=== PATIENT | female | born 1960 | race Caucasian/White ===

== ENCOUNTER 2018-03-24 12:45 | Emergency (ER) | payer MEDICAID ==
[~2018-03-24] VITALS: Ht 167.6 cm; Wt 94.3 kg
[~2018-03-24 12:45] MED LIST: ASPI81CH43 PO; LORA10CA7 PO; LOSA-46 PO; METF-372 PO; METO-169 PO; OMEP20TA85 PO; SIMV40TA96 PO
[2018-03-24 12:54] VITALS: BP 182/90
[2018-03-24 13:53] LABS: Basophils # (auto) 0 uL; Basophils % (auto) 0.4 % (0.0-2.0); Eosinophils # (auto) 0.2 uL; Hematocrit 42.6 % (36.0-46.0); Hemoglobin 14.3 g/dL (12.2-16.2); Lymphocytes # (auto) 1.9 uL; Lymphocytes % (auto) 31.2 % (10.0-50.0); Mean Corpuscular Hemoglobin 28.5 pg (28.0-32.0); Mean Corpuscular Hgb Conc. 33.5 g/dL (32.0-36.0); Mean Corpuscular Volume 85.2 fL (80.0-100.0); Monocytes # (auto) 0.5 uL; Monocytes % (auto) 7.7 % (0.0-12.0); Neutrophils # (auto) 3.5 uL; Neutrophils % (auto) 57.7 % (37.0-80.0); Nucleated Red Blood Cells % 0.1 %; Platelet Count (auto) 215 10^3/uL (140-450); Red Cell Distribution Width 14.5 % (11.8-14.3)
[2018-03-24 14:39] LABS: Blood Urea Nitrogen 14 mg/dL (7-18); Calcium 8.9 mg/dL (8.5-10.1); Chloride 108 mmol/L (98-107); Glucose 97 mg/dL (74-106); Potassium 3.8 mmol/L (3.5-5.1); Sodium 139 mmol/L (136-145)
[2018-03-24 14:52] LABS: Alanine Aminotransferase 37 U/L (13-56); Albumin 3.9 g/dL (3.4-5.0); Alkaline Phosphatase 187 U/L (45-117); Anion Gap 3 (5-15); Aspartate Aminotransferase 35 U/L (15-37); BUN/Creatinine Ratio 24.1; Bilirubin, Total 0.9 mg/dL (0.2-1.0); Carbon Dioxide 28 mmol/L (21-32); GFR African American 137 mL/min; GFR Non-African American 113 mL/min; Magnesium 2.2 mg/dL (1.6-2.6); Total Protein 7.5 g/dL (6.4-8.2)
== END 2018-03-24 19:00 | disposition left against medical advice (07) ==
LOC: ER 12:45
DX: R07.9 Chest pain, unspecified (principal); Z53.21 Procedure and treatment not carried out due to patient leaving prior to being seen by health care provider
CPT/HCPCS: 36415; 80053; 83735; 84484; 85025; 93005

== ENCOUNTER → 2019-08-04 | Outpatient (CLI) | payer MEDICAID ==
[~2019-08-04] VITALS: Ht 167.6 cm; Wt 98.4 kg
[~2019-08-04] MED LIST changes: +ADENOSINE 83 MG in GIVE UN-DILUTED 0 ML IV ONE; +ADENOSINE 90 MG/30 ML INJ IV ONE; -LOSA-46 PO; +LOSA-69 PO
== END | disposition home or self-care (01) ==
LOC: Rad HDHVI 08:17
PROVIDERS: ATTEND Internal Medicine Cardiovascular Disease
DX: R07.9 Chest pain, unspecified (principal); R42 Dizziness and giddiness; I20.0 Unstable angina
CPT/HCPCS: 78452; 93005; 93306; 96374; 96375; A9500; J0153

== ENCOUNTER → 2020-09-13 | Outpatient (CLI) | payer MEDICAID ==
[~2020-09-13] MED LIST changes: -ADENOSINE 83 MG in GIVE UN-DILUTED 0 ML IV ONE; -ADENOSINE 90 MG/30 ML INJ IV ONE; +FLUO1TAB14 PO; +FLUT50SP28; -METO-169 PO; +METO-289 PO; +METO-6 PO; +OMEP-434 PO; +PANC3600 PO; +SEMA2INJ SC; +SIMV40TA2 PO; -SIMV40TA96 PO; +SITA100T7 PO
[2020-09-13 09:36] VITALS: BP 126/80
[2020-09-13 10:04] VITALS: BP 127/74
[2020-09-13 12:55] LABS: Basophils # (auto) 0 10 ^3/uL (0-0.2); Basophils % (auto) 0.9 % (0.0-2.0); Eosinophils # (auto) 0.2 10 ^3/uL (0-0.8); Eosinophils % (auto) 3.6 % (0.0-7.0); Hematocrit 39.4 % (36.0-46.0); Lymphocytes # (auto) 1.1 10 ^3/uL (0.4-5.4); Lymphocytes % (auto) 21.1 % (10.0-50.0); Mean Corpuscular Hemoglobin 32.3 pg (28.0-32.0); Mean Corpuscular Hgb Conc. 35.6 g/dL (32.0-36.0); Mean Corpuscular Volume 90.5 fL (80.0-100.0); Monocytes # (auto) 0.3 10 ^3/uL (0-1.3); Monocytes % (auto) 5.8 % (0.0-12.0); Neutrophils # (auto) 3.7 10 ^3/uL (1.6-8.6); Neutrophils % (auto) 68.6 % (37.0-80.0); Nucleated Red Blood Cells % 0.1 %; Platelet Count (auto) 224 10^3/uL (140-450); Red Blood Cells 4.35 10^6/uL (4.0-5.20); Red Cell Distribution Width 13.5 % (11.8-14.3); White Blood Cell 5.4 10^3/uL (4.4-10.8)
[2020-09-13 13:05] LABS: INR 0.97 (0.9-1.15); Partial Thromboplastin Time 27.8 sec (23.0-31.2)
[2020-09-13 13:16] LABS: BUN/Creatinine Ratio 19.7; Potassium 3.6 mmol/L (3.5-5.1)
== END | disposition home or self-care (01) ==
LOC: Rad HDHVI 08:57
PROVIDERS: ATTEND Internal Medicine Cardiovascular Disease
DX: Z01.818 Encounter for other preprocedural examination (principal); I48.91 Unspecified atrial fibrillation; R00.2 Palpitations; I70.0 Atherosclerosis of aorta; R94.31 Abnormal electrocardiogram [ECG] [EKG]
CPT/HCPCS: 36415; 71046; 80048; 85025; 85610; 85730; 93005; G0463

== ENCOUNTER 2020-09-16 07:02 | Day surgery (SDC) | payer MEDICAID ==
[~2020-09-16] VITALS: Ht 167.6 cm; Wt 87.1 kg
[~2020-09-16 07:02] MED LIST changes: -ASPI81CH43 PO; -LORA10CA7 PO; -LOSA-69 PO; -METF-372 PO; -METO-289 PO; -SIMV40TA2 PO
[2020-09-16] MEDS ORDERED: LIDOCAINE 2%HCL (LOCAL ANESTH.) INJ 20ML MDV ONE (07:35)
[2020-09-16] MEDS ORDERED: IOHEXOL 350 MG/ML 100ML IJ ONE (07:36)
[2020-09-16] MEDS ORDERED: HEPARIN IN NS 1000Units/500mL 1,500 ML ONE (07:36)
[2020-09-16] MEDS ORDERED: ANGIOMAX 250 MG VIAL IV ONE (07:51)
[2020-09-16] MEDS ORDERED: fentaNYL CITRATE 100 MCG/2 ML VL ONE (07:51)
[2020-09-16] MEDS ORDERED: SODIUM CHL 0.9% 0 ML ONE (07:51)
[2020-09-16] MEDS ORDERED: MIDAZOLAM HCL 1MG/1ML-2 ML VIAL ONE (07:51)
== END 2020-09-16 11:40 | disposition home or self-care (01) ==
LOC: CATH 07:02
PROVIDERS: ATTEND Internal Medicine Cardiovascular Disease
DX: I25.10 Atherosclerotic heart disease of native coronary artery without angina pectoris (principal); I10 Essential (primary) hypertension; I25.2 Old myocardial infarction; J45.909 Unspecified asthma, uncomplicated; E11.9 Type 2 diabetes mellitus without complications; J44.9 Chronic obstructive pulmonary disease, unspecified; Z68.31 Body mass index [BMI] 31.0-31.9, adult; Z20.822 Contact with and (suspected) exposure to COVID-19; Z98.890 Other specified postprocedural states; Z79.899 Other long term (current) drug therapy; Z88.0 Allergy status to penicillin; Z88.6 Allergy status to analgesic agent
CPT/HCPCS: 93458; C1760; C1894; J1644; J2250; J3010; J7040; Q9967; U0003; 99152

== ENCOUNTER 2021-10-13 19:30 | Emergency (ER) | payer MEDICAID ==
[2021-10-13 22:33] VITALS: BP 157/82
[2021-10-13] MEDS ORDERED: KETOROLAC TROMETH 60MG/2ML VIAL IM ONE (23:45)
== END 2021-10-13 23:57 | disposition home or self-care (01) ==
LOC: ER 19:30
DX: M54.16 Radiculopathy, lumbar region (principal); E11.9 Type 2 diabetes mellitus without complications; K21.9 Gastro-esophageal reflux disease without esophagitis; E78.5 Hyperlipidemia, unspecified; I10 Essential (primary) hypertension; Z90.49 Acquired absence of other specified parts of digestive tract; Z98.51 Tubal ligation status; Z87.442 Personal history of urinary calculi; Z88.0 Allergy status to penicillin
CPT/HCPCS: 72131; 96372; 99284; J1885

== ENCOUNTER 2022-02-01 13:29 | Inpatient (IN) | payer MEDICAID ==
[~2022-02-01] VITALS: Ht 167.6 cm; Wt 81.0 kg
[2022-02-01] MEDS ORDERED: SODIUM CHLORIDE 0.9% 1,000 ML IV ONE ×2 (15:45)
[2022-02-01] MEDS ORDERED: HYDROmorphone HCL 2 MG/ML VL/or syr IV ONE (15:45)
[2022-02-01] MEDS ORDERED: PROMETHAZINE HCL 25 MG/ML 1ML IV PRN (15:45)
[2022-02-01 16:21] LABS: Basophils # (auto) 0.2 10 ^3/uL (0-0.2); Basophils % (auto) 1.1 % (0.0-2.0); Eosinophils # (auto) 0.1 10 ^3/uL (0-0.8); Eosinophils % (auto) 0.8 % (0.0-7.0); Hematocrit 45.2 % (36.0-46.0); Lymphocytes # (auto) 2.3 10 ^3/uL (0.4-5.4); Lymphocytes % (auto) 16.7 % (10.0-50.0); Mean Corpuscular Hemoglobin 29.9 pg (28.0-32.0); Mean Corpuscular Hgb Conc. 35.3 g/dL (32.0-36.0); Mean Corpuscular Volume 84.7 fL (80.0-100.0); Monocytes # (auto) 0.7 10 ^3/uL (0-1.3); Neutrophils # (auto) 10.5 10 ^3/uL (1.6-8.6); Neutrophils % (auto) 76.4 % (37.0-80.0); Nucleated Red Blood Cells % 0.1 %; Red Blood Cells 5.34 10^6/uL (4.0-5.20); Red Cell Distribution Width 14.4 % (11.8-14.3); White Blood Cell 13.8 10^3/uL (4.4-10.8)
[2022-02-01 16:39] LABS: Albumin 4.5 g/dL (3.4-5.0); Calcium 10.3 mg/dL (8.5-10.1); Potassium 3.4 mmol/L (3.5-5.1)
[2022-02-01 16:40] LABS: INR 1.03 (0.9-1.15); Partial Thromboplastin Time 27.4 sec (24.6-33.4)
[2022-02-01 16:43] LABS: BUN/Creatinine Ratio 21.6; Bilirubin, Total 1.7 mg/dL (0.2-1.0); Total Protein 7.7 g/dL (6.4-8.2)
[2022-02-01] MEDS ORDERED: MORPHINE SULFATE INJ 2 MG/ml SYRG IV PRN (16:45)
[2022-02-01] MEDS ORDERED: PANTOPRAZOLE 40 MG TAB PO ONE (16:45)
[2022-02-01] MEDS ORDERED: DEXTROSE (50%) 50ML SYRG IV PRN (16:45)
[2022-02-01] MEDS ORDERED: HYDROmorphone HCL 2 MG/ML VL/or syr IV PRN (16:45)
[2022-02-01] MEDS ORDERED: NITROGLYCERIN 0.4 MG SL TAB SL PRN (16:45)
[2022-02-01] MEDS ORDERED: SEMAGLUTIDE 1 MG SC SCH (16:45)
[2022-02-01] MEDS ORDERED: IOHEXOL 300 MG/ML 100ML BOTTLE IJ ONE (17:24)
[2022-02-01] MEDS: [UNRECOGNIZED DRUG - OTHER] PO SCH (18:00)
[2022-02-01 18:17] LABS: Urine Bacteria NONE SEEN /hpf (None Seen); Urine Hyaline Cast MOD /lpf (0 - 2); Urine Mucus MODERATE (None Seen); Urine WBC 3 /hpf (0 - 5)
[2022-02-01 18:26] LABS: Urine Specific Gravity 1.025 (1.001-1.035)
[2022-02-01] MEDS: metroNIDAZOLE 500MG/100ML 100 ML IV SCH (18:26)
[2022-02-01] MEDS: methylPREDNISolone SOD SUCC 40 MG/ML VL IV SCH (18:26)
[2022-02-01 18:27] LABS: Urine Blood 4+ /uL (Negative)
[2022-02-01] MEDS: ACCU-CHEK COMFORT CURVE STRIP VI SCH (18:50)
[2022-02-01] MEDS: InsuLIN REG 1unit/0.01ml Soln (100units/ml) SC SCH (18:56)
[2022-02-01] MEDS ORDERED: METF750T54 PO (23:13)
[2022-02-01] MEDS ORDERED: AMLO-489 PO (23:13)
[2022-02-01] MEDS: HYDROmorphone HCL 2 MG/ML VL/or syr IV PRN (23:30)
[2022-02-02] MEDS: ACCU-CHEK COMFORT CURVE STRIP VI SCH ×4 (00:06→18:18)
[2022-02-02] MEDS: metroNIDAZOLE 500MG/100ML 100 ML IV SCH ×5 (00:06→22:10)
[2022-02-02] MEDS: InsuLIN REG 1unit/0.01ml Soln (100units/ml) SC SCH ×4 (00:15→18:33)
[2022-02-02 01:56] LABS: Urine Bacteria NONE SEEN /hpf (None Seen); Urine Mucus MANY (None Seen); Urine WBC 46 /hpf (0 - 5)
[2022-02-02 02:01] LABS: Urine Blood 2+ /uL (Negative); Urine Specific Gravity 1.015 (1.001-1.035)
[2022-02-02 05:05] VITALS: BP 149/74
[2022-02-02] MEDS: methylPREDNISolone SOD SUCC 40 MG/ML VL IV SCH ×2 (06:15→17:47)
[2022-02-02] MEDS: FLUoxetine HCL 20 MG CAP PO SCH (06:15)
[2022-02-02] MEDS: METOPROLOL SUCCINATE XL 50 MG TAB PO SCH (06:16)
[2022-02-02] MEDS: HYDROmorphone HCL 2 MG/ML VL/or syr IV PRN ×4 (06:16→22:11)
[2022-02-02] MEDS: Sitagliptin Phosphate (Januvia) 100 MG TABLETS PO SCH (06:31)
[2022-02-02] MEDS: [UNRECOGNIZED DRUG - OTHER] PO SCH ×3 (08:00→18:00)
[2022-02-02 09:08] VITALS: BP 147/71
[2022-02-02] MEDS: PANTOPRAZOLE 40 MG TAB PO SCH (09:18)
[2022-02-02] MEDS: cefTRIAXone 1GM/50ML D5W 50 ML IV SCH (09:18)
[2022-02-02 13:00] VITALS: BP 151/76
[2022-02-02] MEDS ORDERED: SEMAGLUTIDE 1 MG SC SCH (15:15)
[2022-02-02 16:14] VITALS: BP 140/67
[2022-02-02 22:00] VITALS: BP 148/69
[2022-02-03] MEDS: ACCU-CHEK COMFORT CURVE STRIP VI SCH ×5 (00:17→23:12)
[2022-02-03] MEDS: InsuLIN REG 1unit/0.01ml Soln (100units/ml) SC SCH ×5 (00:19→23:25)
[2022-02-03] MEDS: HYDROmorphone HCL 2 MG/ML VL/or syr IV PRN ×5 (02:24→21:01)
[2022-02-03 05:00] VITALS: BP 144/63
[2022-02-03] MEDS: metroNIDAZOLE 500MG/100ML 100 ML IV SCH ×4 (05:31→23:13)
[2022-02-03] MEDS: methylPREDNISolone SOD SUCC 40 MG/ML VL IV SCH ×2 (05:31→15:48)
[2022-02-03] MEDS: Sitagliptin Phosphate (Januvia) 100 MG TABLETS PO SCH (06:46)
[2022-02-03] MEDS: METOPROLOL SUCCINATE XL 50 MG TAB PO SCH (06:48)
[2022-02-03] MEDS: FLUoxetine HCL 20 MG CAP PO SCH (06:48)
[2022-02-03] MEDS: [UNRECOGNIZED DRUG - OTHER] PO SCH ×3 (08:00→18:00)
[2022-02-03 09:10] VITALS: BP 165/85
[2022-02-03] MEDS: PANTOPRAZOLE 40 MG TAB PO SCH (09:12)
[2022-02-03] MEDS: cefTRIAXone 1GM/50ML D5W 50 ML IV SCH (09:16)
[2022-02-03 12:43] VITALS: BP 146/72
[2022-02-03 17:08] VITALS: BP 178/83
[2022-02-03 22:00] VITALS: BP 160/80
[2022-02-04] MEDS: HYDROmorphone HCL 2 MG/ML VL/or syr IV PRN ×6 (01:14→23:38)
[2022-02-04 05:00] VITALS: BP 150/77
[2022-02-04] MEDS: ACCU-CHEK COMFORT CURVE STRIP VI SCH ×3 (05:33→18:00)
[2022-02-04] MEDS: InsuLIN REG 1unit/0.01ml Soln (100units/ml) SC SCH ×3 (05:34→18:01)
[2022-02-04] MEDS: methylPREDNISolone SOD SUCC 40 MG/ML VL IV SCH ×2 (05:38→16:00)
[2022-02-04] MEDS: metroNIDAZOLE 500MG/100ML 100 ML IV SCH ×4 (05:39→22:45)
[2022-02-04] MEDS: METOPROLOL SUCCINATE XL 50 MG TAB PO SCH (06:25)
[2022-02-04] MEDS: FLUoxetine HCL 20 MG CAP PO SCH (06:25)
[2022-02-04] MEDS: Sitagliptin Phosphate (Januvia) 100 MG TABLETS PO SCH (06:25)
[2022-02-04] MEDS: [UNRECOGNIZED DRUG - OTHER] PO SCH ×3 (08:00→17:59)
[2022-02-04] MEDS: PANTOPRAZOLE 40 MG TAB PO SCH (08:42)
[2022-02-04] MEDS: cefTRIAXone 1GM/50ML D5W 50 ML IV SCH (08:43)
[2022-02-04 08:57] VITALS: BP 186/85
[2022-02-04 13:00] VITALS: BP 159/80
[2022-02-04 17:36] VITALS: BP 179/82
[2022-02-04 20:00] VITALS: BP 150/77
[2022-02-04 22:00] VITALS: BP 144/71
[2022-02-05] MEDS: metroNIDAZOLE 500MG/100ML 100 ML IV SCH ×4 (04:31→17:45)
[2022-02-05] MEDS: methylPREDNISolone SOD SUCC 40 MG/ML VL IV SCH ×3 (04:32→17:45)
[2022-02-05] MEDS: HYDROmorphone HCL 2 MG/ML VL/or syr IV PRN ×3 (04:45→20:46)
[2022-02-05 05:00] VITALS: BP 156/76
[2022-02-05] MEDS: InsuLIN REG 1unit/0.01ml Soln (100units/ml) SC SCH ×5 (06:00→23:44)
[2022-02-05] MEDS: ACCU-CHEK COMFORT CURVE STRIP VI SCH ×5 (06:29→23:26)
[2022-02-05] MEDS: Sitagliptin Phosphate (Januvia) 100 MG TABLETS PO SCH (06:32)
[2022-02-05] MEDS: METOPROLOL SUCCINATE XL 50 MG TAB PO SCH (06:34)
[2022-02-05] MEDS: FLUoxetine HCL 20 MG CAP PO SCH (06:34)
[2022-02-05] MEDS: [UNRECOGNIZED DRUG - OTHER] PO SCH ×3 (07:53→17:35)
[2022-02-05] MEDS: cefTRIAXone 1GM/50ML D5W 50 ML IV SCH (08:44)
[2022-02-05] MEDS: PANTOPRAZOLE 40 MG TAB PO SCH (08:45)
[2022-02-05 09:00] VITALS: BP 154/70
[2022-02-05] MEDS ORDERED: amLODIPine BESYLATE 5 MG TAB PO ONE (12:30)
[2022-02-05] MEDS: KETOROLAC TROMETH 30 MG/ML 1ML VIAL IV PRN ×2 (12:35→23:26)
[2022-02-05 13:00] VITALS: BP 165/70
[2022-02-05 16:46] VITALS: BP 159/80
[2022-02-05 22:00] VITALS: BP 156/73
[2022-02-06 05:00] VITALS: BP 133/62
[2022-02-06] MEDS: metroNIDAZOLE 500MG/100ML 100 ML IV SCH ×4 (05:44→23:18)
[2022-02-06] MEDS: ACCU-CHEK COMFORT CURVE STRIP VI SCH ×4 (05:44→23:18)
[2022-02-06] MEDS: METOPROLOL SUCCINATE XL 50 MG TAB PO SCH (06:00)
[2022-02-06] MEDS: FLUoxetine HCL 20 MG CAP PO SCH (06:00)
[2022-02-06] MEDS: InsuLIN REG 1unit/0.01ml Soln (100units/ml) SC SCH ×4 (06:00→23:24)
[2022-02-06] MEDS: Sitagliptin Phosphate (Januvia) 100 MG TABLETS PO SCH (06:01)
[2022-02-06] MEDS: [UNRECOGNIZED DRUG - OTHER] PO SCH ×3 (08:00→17:03)
[2022-02-06] MEDS: cefTRIAXone 1GM/50ML D5W 50 ML IV SCH (08:42)
[2022-02-06] MEDS: PANTOPRAZOLE 40 MG TAB PO SCH (08:42)
[2022-02-06] MEDS: amLODIPine BESYLATE 5 MG TAB PO SCH (08:43)
[2022-02-06] MEDS: HYDROmorphone HCL 2 MG/ML VL/or syr IV PRN ×3 (08:44→21:51)
[2022-02-06 09:00] VITALS: BP 126/61
[2022-02-06 10:30] LABS: Basophils # (auto) 0 10 ^3/uL (0-0.2); Basophils % (auto) 0.2 % (0.0-2.0); Eosinophils # (auto) 0.1 10 ^3/uL (0-0.8); Eosinophils % (auto) 0.9 % (0.0-7.0); Hematocrit 41.3 % (36.0-46.0); Hemoglobin 14.7 g/dL (12.2-16.2); Lymphocytes # (auto) 1.7 10 ^3/uL (0.4-5.4); Lymphocytes % (auto) 16.4 % (10.0-50.0); Mean Corpuscular Hemoglobin 30.2 pg (28.0-32.0); Mean Corpuscular Hgb Conc. 35.6 g/dL (32.0-36.0); Mean Corpuscular Volume 84.9 fL (80.0-100.0); Monocytes # (auto) 0.6 10 ^3/uL (0-1.3); Monocytes % (auto) 6.1 % (0.0-12.0); Neutrophils # (auto) 8.1 10 ^3/uL (1.6-8.6); Neutrophils % (auto) 76.4 % (37.0-80.0); Nucleated Red Blood Cells % 0.1 %; Red Blood Cells 4.86 10^6/uL (4.0-5.20); Red Cell Distribution Width 14.5 % (11.8-14.3); White Blood Cell 10.6 10^3/uL (4.4-10.8)
[2022-02-06 11:01] LABS: Albumin 3.3 g/dL (3.4-5.0); BUN/Creatinine Ratio 35.5; Calcium 8.9 mg/dL (8.5-10.1)
[2022-02-06 11:03] LABS: Bilirubin, Total 1.3 mg/dL (0.2-1.0); Total Protein 5.8 g/dL (6.4-8.2)
[2022-02-06 11:15] LABS: Potassium 2.7 mmol/L (3.5-5.1)
[2022-02-06] MEDS: KETOROLAC TROMETH 30 MG/ML 1ML VIAL IV PRN ×2 (11:48→23:18)
[2022-02-06 13:00] VITALS: BP 129/71
[2022-02-06] MEDS ORDERED: POTASSIUM CHL 20 Meq TABLET PO ONE (13:15)
[2022-02-06] MEDS: methylPREDNISolone SOD SUCC 40 MG/ML VL IV SCH (16:27)
[2022-02-06 17:00] VITALS: BP 117/58
[2022-02-06 21:45] VITALS: BP 109/57
[2022-02-07 00:26] LABS: BUN/Creatinine Ratio 27.5; Potassium 3.3 mmol/L (3.5-5.1)
[2022-02-07 04:27] VITALS: BP 133/65
[2022-02-07] MEDS: methylPREDNISolone SOD SUCC 40 MG/ML VL IV SCH ×2 (05:59→16:10)
[2022-02-07] MEDS: metroNIDAZOLE 500MG/100ML 100 ML IV SCH ×3 (05:59→16:10)
[2022-02-07] MEDS: METOPROLOL SUCCINATE XL 50 MG TAB PO SCH (06:00)
[2022-02-07] MEDS: FLUoxetine HCL 20 MG CAP PO SCH (06:00)
[2022-02-07] MEDS: ACCU-CHEK COMFORT CURVE STRIP VI SCH ×3 (06:00→17:56)
[2022-02-07] MEDS: Sitagliptin Phosphate (Januvia) 100 MG TABLETS PO SCH (06:01)
[2022-02-07] MEDS: InsuLIN REG 1unit/0.01ml Soln (100units/ml) SC SCH ×3 (06:08→17:56)
[2022-02-07] MEDS: HYDROmorphone HCL 2 MG/ML VL/or syr IV PRN ×4 (06:20→21:40)
[2022-02-07 08:00] VITALS: BP 128/72
[2022-02-07] MEDS: [UNRECOGNIZED DRUG - OTHER] PO SCH ×3 (08:00→17:40)
[2022-02-07] MEDS ORDERED: POTASSIUM CHL 20 Meq TABLET PO ONE ×2 (08:30→10:45)
[2022-02-07] MEDS: cefTRIAXone 1GM/50ML D5W 50 ML IV SCH (09:10)
[2022-02-07] MEDS: amLODIPine BESYLATE 5 MG TAB PO SCH (09:11)
[2022-02-07] MEDS: PANTOPRAZOLE 40 MG TAB PO SCH (09:11)
[2022-02-07 12:00] VITALS: BP 121/57
[2022-02-07] MEDS: KETOROLAC TROMETH 30 MG/ML 1ML VIAL IV PRN ×2 (13:39→23:56)
[2022-02-07 16:00] VITALS: BP 156/72
[2022-02-07 22:00] VITALS: BP 160/70
[2022-02-08] MEDS: ACCU-CHEK COMFORT CURVE STRIP VI SCH ×4 (00:19→18:11)
[2022-02-08] MEDS: metroNIDAZOLE 500MG/100ML 100 ML IV SCH ×3 (00:40→09:40)
[2022-02-08] MEDS: InsuLIN REG 1unit/0.01ml Soln (100units/ml) SC SCH ×4 (00:43→18:13)
[2022-02-08 05:00] VITALS: BP 171/83
[2022-02-08] MEDS: HYDROmorphone HCL 2 MG/ML VL/or syr IV PRN ×4 (06:10→20:13)
[2022-02-08] MEDS: FLUoxetine HCL 20 MG CAP PO SCH (06:10)
[2022-02-08] MEDS: Sitagliptin Phosphate (Januvia) 100 MG TABLETS PO SCH (06:10)
[2022-02-08] MEDS: METOPROLOL SUCCINATE XL 50 MG TAB PO SCH (06:11)
[2022-02-08] MEDS: [UNRECOGNIZED DRUG - OTHER] PO SCH ×3 (08:00→17:20)
[2022-02-08] MEDS: cefTRIAXone 1GM/50ML D5W 50 ML IV SCH (08:27)
[2022-02-08] MEDS: amLODIPine BESYLATE 5 MG TAB PO SCH (08:29)
[2022-02-08] MEDS: PANTOPRAZOLE 40 MG TAB PO SCH (08:36)
[2022-02-08 09:00] VITALS: BP 160/76
[2022-02-08 13:00] VITALS: BP 150/70
[2022-02-08 16:55] VITALS: BP 139/90
[2022-02-08] MEDS: KETOROLAC TROMETH 30 MG/ML 1ML VIAL IV PRN (17:20)
[2022-02-08 22:00] VITALS: BP 150/75
[2022-02-09] VITALS (7 sets, daily range): BP systolic 99–151; BP diastolic 51–77
[2022-02-09] MEDS: ACCU-CHEK COMFORT CURVE STRIP VI SCH ×5 (00:01→23:59)
[2022-02-09] MEDS: InsuLIN REG 1unit/0.01ml Soln (100units/ml) SC SCH ×4 (00:03→17:34)
[2022-02-09] MEDS: HYDROmorphone HCL 2 MG/ML VL/or syr IV PRN ×4 (00:05→19:29)
[2022-02-09] MEDS: KETOROLAC TROMETH 30 MG/ML 1ML VIAL IV PRN ×3 (02:40→17:35)
[2022-02-09] MEDS: Sitagliptin Phosphate (Januvia) 100 MG TABLETS PO SCH (06:19)
[2022-02-09] MEDS: FLUoxetine HCL 20 MG CAP PO SCH (06:19)
[2022-02-09] MEDS: METOPROLOL SUCCINATE XL 50 MG TAB PO SCH (06:19)
[2022-02-09] MEDS: [UNRECOGNIZED DRUG - OTHER] PO SCH ×3 (08:30→17:03)
[2022-02-09] MEDS: PANTOPRAZOLE 40 MG TAB PO SCH (08:49)
[2022-02-09] MEDS: amLODIPine BESYLATE 5 MG TAB PO SCH (08:50)
[2022-02-09] MEDS: cefTRIAXone 1GM/50ML D5W 50 ML IV SCH (08:50)
[2022-02-10] MEDS: InsuLIN REG 1unit/0.01ml Soln (100units/ml) SC SCH ×3 (00:01→12:14)
[2022-02-10] MEDS: KETOROLAC TROMETH 30 MG/ML 1ML VIAL IV PRN (00:07)
[2022-02-10] MEDS: HYDROmorphone HCL 2 MG/ML VL/or syr IV PRN ×4 (02:00→12:19)
[2022-02-10 05:00] VITALS: BP 116/55
[2022-02-10] MEDS: ACCU-CHEK COMFORT CURVE STRIP VI SCH ×2 (05:40→12:14)
[2022-02-10] MEDS: FLUoxetine HCL 20 MG CAP PO SCH (06:06)
[2022-02-10] MEDS: Sitagliptin Phosphate (Januvia) 100 MG TABLETS PO SCH (06:06)
[2022-02-10] MEDS: METOPROLOL SUCCINATE XL 50 MG TAB PO SCH (07:02)
[2022-02-10 08:00] VITALS: BP 106/62
[2022-02-10] MEDS: [UNRECOGNIZED DRUG - OTHER] PO SCH ×2 (08:00→12:00)
[2022-02-10] MEDS: amLODIPine BESYLATE 5 MG TAB PO SCH (10:07)
[2022-02-10] MEDS: PANTOPRAZOLE 40 MG TAB PO SCH (10:07)
[2022-02-10] MEDS: cefTRIAXone 1GM/50ML D5W 50 ML IV SCH (10:13)
[2022-02-10 10:42] VITALS: BP 128/64
[2022-02-10 12:00] VITALS: BP 119/62
[2022-02-10] MEDS ORDERED: KETOROLAC TROMETH 30 MG/ML 1ML VIAL IV ONE (14:00)
== END 2022-02-10 17:00 | disposition home or self-care (01) | DRG 466 ==
LOC: ER 13:29 → OVERFLOW 16:43 → CENTRAL 22:13
PROVIDERS: ADMIT Internal Medicine Cardiovascular Disease; ATTEND Internal Medicine Cardiovascular Disease
DX: T83.718A Erosion of other implanted mesh to organ or tissue, initial encounter (principal); E11.40 Type 2 diabetes mellitus with diabetic neuropathy, unspecified; N73.9 Female pelvic inflammatory disease, unspecified; E11.65 Type 2 diabetes mellitus with hyperglycemia; K42.9 Umbilical hernia without obstruction or gangrene; K44.9 Diaphragmatic hernia without obstruction or gangrene; N39.0 Urinary tract infection, site not specified; E78.5 Hyperlipidemia, unspecified; I10 Essential (primary) hypertension; T38.0X5A Adverse effect of glucocorticoids and synthetic analogues, initial encounter; M48.07 Spinal stenosis, lumbosacral region; Z20.822 Contact with and (suspected) exposure to COVID-19; G89.29 Other chronic pain; F32.A Depression, unspecified; K21.9 Gastro-esophageal reflux disease without esophagitis; I25.10 Atherosclerotic heart disease of native coronary artery without angina pectoris; Y83.8 Other surgical procedures as the cause of abnormal reaction of the patient, or of later complication, without mention of misadventure at the time of the procedure; Z90.49 Acquired absence of other specified parts of digestive tract; Z87.442 Personal history of urinary calculi; Z82.49 Family history of ischemic heart disease and other diseases of the circulatory system; Z88.0 Allergy status to penicillin; Y92.89 Other specified places as the place of occurrence of the external cause; Z79.84 Long term (current) use of oral hypoglycemic drugs; M51.26 Other intervertebral disc displacement, lumbar region
CPT/HCPCS: 36415; 71046; 72148; 73721; 74177; 78306; 80048; 80053; 81001; 82962; 83690; 83735; 85025; 85610; 85652; 85730; 87426; 96361; 96374; 97163; G0378; J0696; J1815; J1885; J3490

== ENCOUNTER → 2022-06-06 | Outpatient (CLI) | payer MEDICAID ==
[~2022-06-06] MED LIST changes: +AMLO-489 PO; +METF750T54 PO
== END | disposition home or self-care (01) ==
LOC: Rad HDHVI 09:04
PROVIDERS: ATTEND Internal Medicine Cardiovascular Disease
DX: I10 Essential (primary) hypertension (principal); R07.89 Other chest pain
CPT/HCPCS: 93306

== ENCOUNTER → 2022-06-07 | Outpatient (CLI) | payer MEDICAID ==
[~2022-06-07] VITALS: Ht 167.6 cm; Wt 75.7 kg
[~2022-06-07] MED LIST changes: +ADENOSINE 64 MG in GIVE UN-DILUTED 0 ML IV ONE; +ADENOSINE 90 MG/30 ML INJ IV ONE
== END | disposition home or self-care (01) ==
LOC: Rad HDHVI 08:27
PROVIDERS: ATTEND Internal Medicine Cardiovascular Disease
DX: I10 Essential (primary) hypertension (principal); I25.10 Atherosclerotic heart disease of native coronary artery without angina pectoris; R07.9 Chest pain, unspecified; R06.02 Shortness of breath; E78.00 Pure hypercholesterolemia, unspecified; E11.9 Type 2 diabetes mellitus without complications; I25.2 Old myocardial infarction; R42 Dizziness and giddiness; Z82.49 Family history of ischemic heart disease and other diseases of the circulatory system
CPT/HCPCS: 78452; 93005; 96374; 96375; A9500; J0153

== ENCOUNTER → 2023-05-15 | Outpatient (CLI) | payer MEDICARE, MEDICAID ==
[~2023-05-15] VITALS: Ht 167.6 cm; Wt 71.7 kg
[~2023-05-15] MED LIST changes: +ADENOSINE 60 MG in GIVE UN-DILUTED 0 ML IV ONE; -ADENOSINE 64 MG in GIVE UN-DILUTED 0 ML IV ONE; -AMLO-489 PO; +AMLO1TAB22 PO
== END | disposition home or self-care (01) ==
LOC: Rad HDHVI 12:45
PROVIDERS: ATTEND Internal Medicine Cardiovascular Disease
DX: I10 Essential (primary) hypertension (principal); E11.9 Type 2 diabetes mellitus without complications; E78.00 Pure hypercholesterolemia, unspecified; I25.2 Old myocardial infarction; Z82.49 Family history of ischemic heart disease and other diseases of the circulatory system
CPT/HCPCS: 78452; 93005; 96374; 96375; A9500; J0153

== ENCOUNTER → 2023-05-16 | Outpatient (CLI) | payer MEDICARE, MEDICAID ==
[~2023-05-16] MED LIST changes: -ADENOSINE 60 MG in GIVE UN-DILUTED 0 ML IV ONE; -ADENOSINE 90 MG/30 ML INJ IV ONE
== END | disposition home or self-care (01) ==
LOC: Rad HDHVI 16:10
PROVIDERS: ATTEND Internal Medicine Cardiovascular Disease
DX: I35.8 Other nonrheumatic aortic valve disorders (principal); I11.9 Hypertensive heart disease without heart failure; R07.89 Other chest pain
CPT/HCPCS: 93306

== ENCOUNTER → 2024-05-26 | Outpatient (CLI) | payer MEDICARE, MEDICAID ==
[~2024-05-26] MED LIST changes: +LIDOCAINE 1% IV ONE; +POTASSIUM CHLORIDE IV ONE; +SODIUM CHL 0.9% IV ONE; +SODIUM CHLORIDE 0.9% 500 ML IV ONE
[2024-05-26 12:05] VITALS: BP 140/72; PULSE 82; RESP 18; O2SAT 95
[2024-05-26] MEDS: POTASSIUM CHLORIDE 40 MEQ, LIDOCAINE 1% (LOCAL ANESTH.) 4 ML in SODIUM CHL 0.9% 250 ML IV ONE (13:00)
[2024-05-26] MEDS: SODIUM CHLORIDE 0.9% 250 ML IV ONE (13:00)
--- NOTE | 2024-05-26 14:25 | DVH ---
CT ABDOMEN AND PELVIS with oral CONTRAST CLINICAL HISTORY: ABD PAIN TECHNIQUE: Multiple contiguous axial images of the abdomen and pelvis without intravenous and with or al contrast. The images were reformatted degenerate coronal and sagittal reconstructions. All CT scans at this medical facility are performed using dose modulation techniques as appropriate t o a performed exam including the following:Automated exposure control was utilized; adjustment of the MA and/or KV according to patient size; and use of iterative reconstruction technique. Radiation Dose Information: CT Dose: CTDI volume is 7.24 mGy. Dose-length product is 351.08 mGy*cm Comparison: CTA chest 08/24/2023 FINDINGS: Evaluation of the abdomen and pelvis is limited without intravenous contrast. There is a 4.2 x 4.6 cm left adrenal mass. The right adrenal gland appears within normal limits. The gallbladder is surgically absent. The liver, pancreas, kidneys, and spleen appear within norm al limits. There is no gross evidence of abdominal lymphadenopathy. There is no free fluid or free air. The stomach grossly appears unremarkable. The small and large bowel loops demonstrate normal caliber . There is oral contrast in the stomach and small bowel loops. There are scattered diverticula in th e distal colon without evidence of acute diverticulitis. There are calcified atherosclerotic changes in the abdominal aorta. The IVC appears within normal li mits. The bladder appears unremarkable for the degree of distention. Pelvic organ appears within normal rome its. There is no gross evidence of a pelvic mass. There is no free fluid collection. Lung bases are clear. There is no acute osseous abnormality. There is fusion hardware in the lower lumbar spine. IMPRESSION: 1. There is no acute process in the abdomen and pelvis. 2. 4.2 x 4.6 cm left adrenal mass. Further evaluation with MRI abdomen with contrast and in and out o f phase imaging is recommended. 3. Distal colonic diverticulosis. HS:Y
[2024-05-26 17:05] VITALS: BP 136/72; PULSE 74; RESP 18; O2SAT 95
== END | disposition home or self-care (01) ==
LOC: Rad HDHVI 12:08
PROVIDERS: ATTEND Internal Medicine Cardiovascular Disease
DX: K52.9 Noninfective gastroenteritis and colitis, unspecified (principal); E27.9 Disorder of adrenal gland, unspecified; I10 Essential (primary) hypertension; I25.10 Atherosclerotic heart disease of native coronary artery without angina pectoris; K57.30 Diverticulosis of large intestine without perforation or abscess without bleeding; Z90.49 Acquired absence of other specified parts of digestive tract
CPT/HCPCS: 74176; 96365; 96366; G0463; J2003; J3480; J7050

== ENCOUNTER → 2024-07-14 | Outpatient (CLI) | payer MEDICARE, MEDICAID ==
[~2024-07-14] MED LIST changes: -LIDOCAINE 1% IV ONE; -POTASSIUM CHLORIDE IV ONE; -SODIUM CHL 0.9% IV ONE; -SODIUM CHLORIDE 0.9% 500 ML IV ONE
--- NOTE | 2024-07-14 14:10 | DVHSR ---
APPROVED REPORT EXAM: Two-dimensional and M-mode echocardiogram with Doppler and color Doppler. DIMENSIONS LVDd4.2 (3.8-5.7cm)LA (2D)3.1 (1.9-4.0cm)Aortic Root3.7 (2.0-3.7cm) LVDs2.7 (2.5-4.0cm)LA (MM) (1.9-4.0cm)Aortic Cusp Exc1.7 (1.5-2.0cm) EF (%) 65.0 (55-70%)Rt. Atrium3.0 (1.9-4.0cm)Asc. Aorta cm IVSd1.1 (0.7-1.1cm)RV (D) (1.8-2.4cm) PWd1.0 (0.7-1.1cm) Mitral Valve MitralMitral Stenosis E wave0.76m/sMV Mean GR.mmHg A wave0.72m/sMV Peak GR.mmHg E/A ratio1.12D MVAcm2 DECEL [id number] 1/2 [place] Aortic Valve Aortic ValveAortic Stenosis V10.91m/Stu Mean GR.2mmHg V21.00m/Stu Peak GR.4mmHg LVOT Diameter2.1 (1.8-2.4cm)Doppler AVA3.15cm2 Pulmonic Valve V20.98m/s Tricuspid Valve TR Velocity2.59m/s [id number] LEFT VENTRICLE The left ventricle is normal size. The left ventricle is normal in structure and function. The Ejection Fraction is within normal limits. RIGHT VENTRICLE The right ventricle is normal size. ATRIA The left atrial size is normal. The right atrium size is normal. The interatrial septum is intact with no evidence for an atrial septal defect. MITRAL VALVE The mitral valve is normal in structure. Mitral regurgitation is trace. PULMONIC VALVE The pulmonic valve is not well visualized. TRICUSPID VALVE The tricuspid valve is grossly normal. There is trace tricuspid regurgitation. Right ventricular systolic pressure is 30-40 mmHg. AORTIC VALVE The aortic valve opens well. The aortic valve is mildly sclerotic. No aortic regurgitation is present. GREAT VESSELS The aortic root is normal size. PERICARDIAL EFFUSION There is no pericardial effusion. Conclusion EF >55%
== END | disposition home or self-care (01) ==
LOC: Rad HDHVI 08:00
PROVIDERS: ATTEND Internal Medicine Cardiovascular Disease
DX: Z01.810 Encounter for preprocedural cardiovascular examination (principal); I35.8 Other nonrheumatic aortic valve disorders
CPT/HCPCS: 93306

== ENCOUNTER → 2024-07-15 | Outpatient (CLI) | payer MEDICARE, MEDICAID ==
[~2024-07-15] VITALS: Ht 162.6 cm; Wt 70.8 kg
[~2024-07-15] MED LIST changes: +ADENOSINE 59 MG in GIVE UN-DILUTED 0 ML IV ONE; +ADENOSINE 90 MG/30 ML INJ IV ONE; +ONDANSETRON HCL 4 MG/2 ML VIAL ONE
== END | disposition home or self-care (01) ==
LOC: Rad HDHVI 12:25
PROVIDERS: ATTEND Internal Medicine Cardiovascular Disease
DX: Z01.810 Encounter for preprocedural cardiovascular examination (principal); I49.1 Atrial premature depolarization; I11.0 Hypertensive heart disease with heart failure; I50.33 Acute on chronic diastolic (congestive) heart failure; I25.2 Old myocardial infarction; E11.40 Type 2 diabetes mellitus with diabetic neuropathy, unspecified; E78.00 Pure hypercholesterolemia, unspecified; R06.02 Shortness of breath; R07.89 Other chest pain; Z88.0 Allergy status to penicillin; Z82.49 Family history of ischemic heart disease and other diseases of the circulatory system
CPT/HCPCS: 78452; 93017; A9500; J0153; J2405; 93005; 96374; 96375